=== PATIENT | male | born 1965 | race Caucasian/White ===

== ENCOUNTER 2018-02-09 19:25 | Inpatient (IN) ==
[2018-02-09] MEDS: EPTIFIBATIDE 75 MG/100 ML BOTTLE IV SCH (19:17)
[~2018-02-09 19:25] MED LIST: EPTIFIBATIDE 20,000 MCG/10 ML VIAL ONE; EPTIFIBATIDE 75 MG/100 ML BOTTLE IV ONE; HEPARIN/NACL 0.9% 2 UNITS/ML 1,500 ML IV ONE; HYDROmorphone 2 MG/1 ML VIAL ONE; MIDAZOLAM 2 MG/2 ML VIAL ONE
[2018-02-09] MEDS ORDERED: ENOXAPARIN 60 MG/0.6 ML SYRINGE ONE (19:56)
[2018-02-09] MEDS ORDERED: HEPARIN/NACL 0.9% 2 UNITS/ML 500 ML IV ONE (20:06)
[2018-02-09] MEDS ORDERED: LABETALOL 20 MG/4 ML SYRINGE IV ONE (20:22)
[2018-02-09] MEDS ORDERED: ceFAZolin 1,000 MG VIAL ONE (20:24)
[2018-02-09] MEDS ORDERED: TICAGRELOR 90 MG TABLET ONE (20:31)
[2018-02-09 20:38] LABS: Basophils # 0.1 10*3/uL (0.0-0.2); Basophils % 0.4 % (0.0-0.8); Eosinophils # 0.3 10*3/uL (0.0-0.87); Eosinophils % 1.4 % (0.00-10.9); Hematocrit 35.4 VOL% (42.0-52.0); Immature Granulocytes % 0.9 %; Immature Granulocytes Absolute 0.18 #; Lymphocytes # 1.5 10*3/uL (1.4-4.0); Lymphocytes % 7.8 % (21.2-54.2); Mean Corpuscular HGB Conc 33.9 GM/DL (32-36); Mean Corpuscular Hemoglobin 29 PG (27-34); Mean Corpuscular Volume 84.1 FL (87-102); Mean Platelet Volume 9.7 FL (9.6-12.0); Monocytes # 1.2 10*3/uL (0.11-0.8); Monocytes % 6.3 % (1.7-12.7); Neutrophils # 16.3 10*3/uL (1.4-7.4); Neutrophils % 83.2 % (38.7-73.9); Platelet Count 252 T/CUMM (130-400); Red Blood Count 4.21 MC/CUMM (3.8-5.5); Red Cell Distribution Width 12.2 % (9.3-17.3); White Blood Count 19.6 T/CUMM (4-12)
[2018-02-09] MEDS ORDERED: GLUCAGON 1 MG VIAL IM PRN (20:45)
[2018-02-09] MEDS ORDERED: ONDANSETRON 4 MG/2 ML VIAL ONE (20:50)
[2018-02-09] MEDS ORDERED: SODIUM CHLORIDE 0.9% 1,000 ML IV SCH (21:00)
[2018-02-09 21:05] LABS: CKMB % 10.7 %; Calcium 8.1 MG/DL (8.5-10.1); Potassium 4.3 MMOL/L (3.5-5.1)
[2018-02-09 21:08] LABS: Troponin I Only 6.56 NG/ML (0.00-0.045)
[2018-02-09] MEDS: DEXTROSE 50% 25 GM/50 ML VIAL IV PRN (21:20)
[2018-02-09] MEDS: CLORAZEPATE 7.5 MG TABLET PO PRN (22:45)
[2018-02-09] MEDS: LOSARTAN 50 MG TABLET PO SCH (22:45)
[2018-02-09] MEDS: TICAGRELOR 90 MG TABLET PO SCH (22:46)
[2018-02-09] MEDS: CARVEDILOL 6.25 MG TABLET PO SCH (22:46)
[2018-02-09] MEDS: NITROGLYCERIN SL 0.4 MG TABLET SL PRN ×2 (23:51→23:56)
[2018-02-09] MEDS ORDERED: NITROGLYCERIN SL 0.4 MG TABLET SL ONE (23:51)
[2018-02-10] MEDS: NITROGLYCERIN SL 0.4 MG TABLET SL PRN ×2 (00:03→02:07)
[2018-02-10] MEDS ORDERED: MORPHINE 4 MG/1 ML VIAL IV PRN (02:23)
[2018-02-10] MEDS: ZALEPLON 5 MG CAPSULE PO PRN (02:58)
[2018-02-10] MEDS: ONDANSETRON 4 MG/2 ML VIAL IV PRN (02:59)
[2018-02-10] MEDS: NITROGLYCERIN DRIP 50 MG/250 ML BOTTLE IV PRN (03:01)
[2018-02-10] MEDS: EPTIFIBATIDE 75 MG/100 ML BOTTLE IV SCH (03:11)
[2018-02-10] MEDS: MORPHINE 4 MG/1 ML VIAL IV PRN ×4 (03:55→13:31)
[2018-02-10] MEDS: SODIUM CHLORIDE 0.9% 1,000 ML IV SCH ×3 (06:10→21:21)
[2018-02-10 07:20] LABS: Basophils # 0.1 10*3/uL (0.0-0.2); Basophils % 0.3 % (0.0-0.8); Eosinophils % 0.1 % (0.00-10.9); Hematocrit 40.8 VOL% (42.0-52.0); Hemoglobin 14.2 GM/DL (14.0-18.0); Immature Granulocytes % 0.7 %; Immature Granulocytes Absolute 0.13 #; Lymphocytes # 1.3 10*3/uL (1.4-4.0); Lymphocytes % 6.9 % (21.2-54.2); Mean Corpuscular HGB Conc 34.8 GM/DL (32-36); Mean Corpuscular Hemoglobin 29 PG (27-34); Mean Corpuscular Volume 83.3 FL (87-102); Mean Platelet Volume 10.1 FL (9.6-12.0); Monocytes # 1.2 10*3/uL (0.11-0.8); Monocytes % 6.2 % (1.7-12.7); NRBC # 0.05 10*3/uL; Neutrophils # 16.1 10*3/uL (1.4-7.4); Neutrophils % 85.8 % (38.7-73.9); Platelet Count 279 T/CUMM (130-400); Red Cell Distribution Width 12.6 % (9.3-17.3); White Blood Count 18.8 T/CUMM (4-12)
[2018-02-10 08:02] LABS: Platelet Estimate Adequate; Polychromasia Slight
[2018-02-10] MEDS: CARVEDILOL 6.25 MG TABLET PO SCH ×2 (08:25→21:23)
[2018-02-10] MEDS: PANTOPRAZOLE 40 MG TABLET PO SCH (08:25)
[2018-02-10] MEDS: ASPIRIN CHEW 81 MG TABLET PO SCH (08:25)
[2018-02-10] MEDS: TICAGRELOR 90 MG TABLET PO SCH ×2 (08:25→21:23)
[2018-02-10] MEDS: ROSUVASTATIN 20 MG TABLET PO SCH (08:25)
[2018-02-10] MEDS: LOSARTAN 50 MG TABLET PO SCH (08:25)
[2018-02-10 09:28] LABS: Calcium 8.1 MG/DL (8.5-10.1); Potassium 4.6 MMOL/L (3.5-5.1)
[2018-02-10 09:49] LABS: CKMB % 13.8 %
[2018-02-10 09:54] LABS: Troponin I Only 47.4 NG/ML (0.00-0.045)
[2018-02-10] MEDS ORDERED: ALUM/MAG/SIMETH/LIDO VISC 1:1 30 ML BOTTLE PO ONE (13:38)
[2018-02-10 13:53] LABS: CKMB % 12.5 %
[2018-02-10 13:54] LABS: Troponin I Only 35.2 NG/ML (0.00-0.045)
[2018-02-11] MEDS: NITROGLYCERIN DRIP 50 MG/250 ML BOTTLE IV PRN (04:02)
[2018-02-11] MEDS: SODIUM CHLORIDE 0.9% 1,000 ML IV SCH ×5 (05:38→21:30)
[2018-02-11] MEDS: LOSARTAN 50 MG TABLET PO SCH (08:11)
[2018-02-11] MEDS: ASPIRIN CHEW 81 MG TABLET PO SCH (08:11)
[2018-02-11] MEDS: PANTOPRAZOLE 40 MG TABLET PO SCH (08:12)
[2018-02-11] MEDS: ROSUVASTATIN 20 MG TABLET PO SCH ×2 (08:12→21:15)
[2018-02-11] MEDS: CARVEDILOL 6.25 MG TABLET PO SCH ×2 (08:12→20:38)
[2018-02-11] MEDS: TICAGRELOR 90 MG TABLET PO SCH ×2 (08:12→20:38)
[2018-02-11] MEDS ORDERED: methylPREDNISolone SOD SUC 125 MG/2 ML VIAL IV ONE (09:17)
[2018-02-11] MEDS ORDERED: KETOROLAC 30 MG/1 ML VIAL IV ONE (09:17)
[2018-02-11 10:03] LABS: Calcium 7.7 MG/DL (8.5-10.1); Potassium 4.3 MMOL/L (3.5-5.1)
[2018-02-11 10:08] LABS: CKMB % 4.8 %
[2018-02-11 10:10] LABS: Risk Ratio 2.58
[2018-02-11] MEDS ORDERED: DEXTROSE 50% 25 GM/50 ML VIAL IV PRN (10:24)
[2018-02-11] MEDS ORDERED: GLUCAGON 1 MG VIAL IM PRN (10:24)
[2018-02-11] MEDS: GABAPENTIN 100 MG CAPSULE PO SCH ×3 (10:32→20:38)
[2018-02-11] MEDS: RANOLAZINE 500 MG TABLET PO SCH ×2 (10:33→20:38)
[2018-02-11] MEDS: HEPARIN DRIP 25,000 UNITS/500 ML PREMIX IV SCH (10:40)
[2018-02-11] MEDS: MORPHINE 4 MG/1 ML VIAL IV PRN (16:43)
[2018-02-12 04:27] LABS: Basophils % 0.1 % (0.0-0.8); Hematocrit 30.6 VOL% (42.0-52.0); Hemoglobin 10.6 GM/DL (14.0-18.0); Immature Granulocytes Absolute 0.22 #; Lymphocytes % 4.7 % (21.2-54.2); Mean Corpuscular HGB Conc 34.6 GM/DL (32-36); Mean Corpuscular Hemoglobin 29 PG (27-34); Mean Corpuscular Volume 83.2 FL (87-102); Mean Platelet Volume 10.6 FL (9.6-12.0); Monocytes # 0.8 10*3/uL (0.11-0.8); Monocytes % 3.9 % (1.7-12.7); Neutrophils # 19.4 10*3/uL (1.4-7.4); Neutrophils % 90.3 % (38.7-73.9); Platelet Count 228 T/CUMM (130-400); Red Blood Count 3.68 MC/CUMM (3.8-5.5); Red Cell Distribution Width 12.2 % (9.3-17.3); White Blood Count 21.5 T/CUMM (4-12)
[2018-02-12] MEDS: SODIUM CHLORIDE 0.9% 1,000 ML IV SCH ×3 (05:30→23:26)
[2018-02-12 05:35] LABS: Band Neutrophils 5 % (0-10); Lymphocytes 8 % (20-55); Platelet Estimate Normal; Segmented Neutrophils 82 % (50-85); Total Cells Counted 100
[2018-02-12 05:42] LABS: Calcium 7.8 MG/DL (8.5-10.1); Osmolality,Calculated 279.1 MOS/KG (273-304); Potassium 4.3 MMOL/L (3.5-5.1)
[2018-02-12] MEDS: HEPARIN DRIP 25,000 UNITS/500 ML PREMIX IV SCH ×2 (05:45→18:15)
[2018-02-12] MEDS: TICAGRELOR 90 MG TABLET PO SCH ×2 (09:41→21:09)
[2018-02-12] MEDS: CARVEDILOL 6.25 MG TABLET PO SCH (09:41)
[2018-02-12] MEDS: LOSARTAN 50 MG TABLET PO SCH (09:41)
[2018-02-12] MEDS: ASPIRIN CHEW 81 MG TABLET PO SCH (09:41)
[2018-02-12] MEDS: PANTOPRAZOLE 40 MG TABLET PO SCH (09:42)
[2018-02-12] MEDS: RANOLAZINE 500 MG TABLET PO SCH ×2 (09:42→21:10)
[2018-02-12] MEDS: GABAPENTIN 100 MG CAPSULE PO SCH ×3 (09:42→21:09)
[2018-02-12 13:55] LABS: HIV Antigen/Antibody Result Nonreactive (Nonreactive); Hepatitis B Surface Ag Quant 0.43 Index; Hepatitis B Surface Ag Result Negative (Negative); Hepatitis C Virus Ab Quant 0.17 Index; Hepatitis C Virus Ab Result Negative (Negative)
[2018-02-12] MEDS: ROSUVASTATIN 20 MG TABLET PO SCH (21:09)
[2018-02-12] MEDS: CARVEDILOL 12.5 MG TABLET PO SCH (21:10)
[2018-02-12] MEDS: ZALEPLON 5 MG CAPSULE PO PRN (21:17)
[2018-02-13] MEDS: CLORAZEPATE 7.5 MG TABLET PO PRN (00:58)
[2018-02-13] MEDS: MORPHINE 4 MG/1 ML VIAL IV PRN ×2 (01:48→05:17)
[2018-02-13] MEDS: ONDANSETRON 4 MG/2 ML VIAL IV PRN (01:53)
[2018-02-13] MEDS ORDERED: LORazepam 2 MG/1 ML VIAL IV ONE (02:30)
[2018-02-13] MEDS: NITROGLYCERIN SL 0.4 MG TABLET SL PRN (04:24)
[2018-02-13] MEDS ORDERED: FUROSEMIDE 40 MG/4 ML VIAL IV ONE ×2 (04:30→05:00)
[2018-02-13] MEDS: metOLazone 2.5 MG TABLET PO SCH ×2 (05:03→08:50)
[2018-02-13 06:24] LABS: Basophils # 0.1 10*3/uL (0.0-0.2); Basophils % 0.2 % (0.0-0.8); Eosinophils # 0.1 10*3/uL (0.0-0.87); Eosinophils % 0.3 % (0.00-10.9); Hematocrit 34.7 VOL% (42.0-52.0); Hemoglobin 11.8 GM/DL (14.0-18.0); Immature Granulocytes % 1.2 %; Immature Granulocytes Absolute 0.25 #; Lymphocytes # 0.9 10*3/uL (1.4-4.0); Lymphocytes % 4.2 % (21.2-54.2); Mean Corpuscular Hemoglobin 29 PG (27-34); Mean Corpuscular Volume 84.6 FL (87-102); Mean Platelet Volume 10.5 FL (9.6-12.0); Monocytes # 1.2 10*3/uL (0.11-0.8); Neutrophils # 18.1 10*3/uL (1.4-7.4); Neutrophils % 88.1 % (38.7-73.9); Platelet Count 283 T/CUMM (130-400); Red Cell Distribution Width 12.6 % (9.3-17.3); White Blood Count 20.6 T/CUMM (4-12)
[2018-02-13] MEDS: DEXTROSE 50% 25 GM/50 ML VIAL IV PRN ×2 (06:31→08:23)
[2018-02-13 06:39] LABS: Apearance,Urine Clear (Clear); Urine Color Straw (Yellow); Urine Specific Gravity 1.015 (1.001-1.035)
[2018-02-13 06:40] LABS: Bilirubin,Urine Negative (Negative); Blood, Urine Negative (Negative); Glucose,Urine (UA) Negative (Negative); Ketones,Urine Negative (Negative); Nitrite,Urine Negative (Negative); Protein,Urine Negative; Urine Urobilinogen 0.2 EU/DL (0.2-1.0)
[2018-02-13 06:52] LABS: Calcium 8.4 MG/DL (8.5-10.1); Osmolality,Calculated 276.5 MOS/KG (273-304); Potassium 3.8 MMOL/L (3.5-5.1)
[2018-02-13 06:56] LABS: CKMB % 3.7 %; Calcium 8.2 MG/DL (8.5-10.1); Osmolality,Calculated 275.5 MOS/KG (273-304); Potassium 3.7 MMOL/L (3.5-5.1)
[2018-02-13 06:57] LABS: Troponin I Only 8.63 NG/ML (0.00-0.045)
[2018-02-13 07:25] LABS: Band Neutrophils 1 % (0-10); Hypochromasia 1+; Lymphocytes 5 % (20-55); Platelet Estimate Adequate; Segmented Neutrophils 87 % (50-85); Total Cells Counted 100
[2018-02-13] MEDS: PANTOPRAZOLE 40 MG TABLET PO SCH (08:50)
[2018-02-13] MEDS: ESCITALOPRAM 10 MG TABLET PO SCH (08:50)
[2018-02-13] MEDS: CARVEDILOL 12.5 MG TABLET PO SCH ×2 (08:50→20:48)
[2018-02-13] MEDS: LOSARTAN 50 MG TABLET PO SCH (08:50)
[2018-02-13] MEDS: GABAPENTIN 100 MG CAPSULE PO SCH ×3 (08:50→20:48)
[2018-02-13] MEDS: ASPIRIN CHEW 81 MG TABLET PO SCH (08:50)
[2018-02-13] MEDS: TICAGRELOR 90 MG TABLET PO SCH ×2 (08:51→20:48)
[2018-02-13] MEDS: RANOLAZINE 500 MG TABLET PO SCH ×2 (09:34→20:48)
[2018-02-13] MEDS: ENOXAPARIN 120 MG/0.8 ML SYRINGE SUBCUT SCH ×2 (11:10→23:50)
[2018-02-13] MEDS: FUROSEMIDE 40 MG/4 ML VIAL IV SCH (15:36)
[2018-02-13] MEDS: ROSUVASTATIN 20 MG TABLET PO SCH (20:48)
[2018-02-13] MEDS: ZALEPLON 5 MG CAPSULE PO PRN (23:50)
[2018-02-14 05:51] LABS: Basophils # 0.1 10*3/uL (0.0-0.2); Basophils % 0.4 % (0.0-0.8); Eosinophils # 0.3 10*3/uL (0.0-0.87); Eosinophils % 2.4 % (0.00-10.9); Hematocrit 33.3 VOL% (42.0-52.0); Hemoglobin 11.2 GM/DL (14.0-18.0); Immature Granulocytes % 0.7 %; Lymphocytes # 1.7 10*3/uL (1.4-4.0); Lymphocytes % 12.5 % (21.2-54.2); Mean Corpuscular HGB Conc 33.6 GM/DL (32-36); Mean Corpuscular Hemoglobin 28 PG (27-34); Mean Corpuscular Volume 83.3 FL (87-102); Mean Platelet Volume 10.4 FL (9.6-12.0); Monocytes # 1.1 10*3/uL (0.11-0.8); Monocytes % 7.8 % (1.7-12.7); Neutrophils # 10.6 10*3/uL (1.4-7.4); Neutrophils % 76.2 % (38.7-73.9); Platelet Count 275 T/CUMM (130-400); Red Cell Distribution Width 12.6 % (9.3-17.3); White Blood Count 13.9 T/CUMM (4-12)
[2018-02-14 06:18] LABS: Calcium 7.9 MG/DL (8.5-10.1); Osmolality,Calculated 275.5 MOS/KG (273-304); Potassium 3.1 MMOL/L (3.5-5.1)
[2018-02-14] MEDS: FUROSEMIDE 40 MG/4 ML VIAL IV SCH (08:50)
[2018-02-14] MEDS: ASPIRIN CHEW 81 MG TABLET PO SCH (08:50)
[2018-02-14] MEDS: PANTOPRAZOLE 40 MG TABLET PO SCH (08:50)
[2018-02-14] MEDS: CARVEDILOL 12.5 MG TABLET PO SCH ×2 (08:50→21:44)
[2018-02-14] MEDS: LOSARTAN 50 MG TABLET PO SCH (08:50)
[2018-02-14] MEDS: TICAGRELOR 90 MG TABLET PO SCH ×2 (08:50→21:44)
[2018-02-14] MEDS: metOLazone 2.5 MG TABLET PO SCH (08:50)
[2018-02-14] MEDS: RANOLAZINE 500 MG TABLET PO SCH ×2 (08:50→21:43)
[2018-02-14] MEDS: GABAPENTIN 100 MG CAPSULE PO SCH ×3 (09:14→21:44)
[2018-02-14] MEDS: ENOXAPARIN 120 MG/0.8 ML SYRINGE SUBCUT SCH (11:10)
[2018-02-14] MEDS: POTASSIUM CHLORIDE 20 MEQ TABLET PO PRN ×3 (11:10→19:07)
[2018-02-14] MEDS: ESCITALOPRAM 10 MG TABLET PO SCH (11:10)
[2018-02-14] MEDS: ISOSORBIDE MONONITRATE 30 MG TABLET PO SCH (14:12)
[2018-02-14] MEDS ORDERED: POTASSIUM CHLORIDE 20 MEQ TABLET PO ONE (14:53)
[2018-02-14] MEDS ORDERED: diphenhydrAMINE CAP 25 MG CAPSULE PO PRN (15:35)
[2018-02-14] MEDS ORDERED: MAGNESIUM HYDROXIDE SUSP 30 ML UDCUP PO PRN (15:35)
[2018-02-14] MEDS: ROSUVASTATIN 20 MG TABLET PO SCH (21:43)
[2018-02-15 04:42] LABS: Basophils # 0.1 10*3/uL (0.0-0.2); Basophils % 0.4 % (0.0-0.8); Eosinophils # 0.5 10*3/uL (0.0-0.87); Eosinophils % 3.4 % (0.00-10.9); Hematocrit 33.2 VOL% (42.0-52.0); Hemoglobin 11.3 GM/DL (14.0-18.0); Immature Granulocytes % 1.8 %; Immature Granulocytes Absolute 0.25 #; Lymphocytes # 1.9 10*3/uL (1.4-4.0); Lymphocytes % 14.3 % (21.2-54.2); Mean Corpuscular Hemoglobin 28 PG (27-34); Mean Platelet Volume 10.2 FL (9.6-12.0); Monocytes # 0.9 10*3/uL (0.11-0.8); Monocytes % 6.6 % (1.7-12.7); Neutrophils % 73.5 % (38.7-73.9); Platelet Count 275 T/CUMM (130-400); Red Cell Distribution Width 12.4 % (9.3-17.3); White Blood Count 13.5 T/CUMM (4-12)
[2018-02-15] MEDS: POTASSIUM CHLORIDE 20 MEQ TABLET PO PRN ×4 (05:00→08:54)
[2018-02-15 05:07] LABS: Calcium 7.9 MG/DL (8.5-10.1); Osmolality,Calculated 271.5 MOS/KG (273-304); Potassium 3.3 MMOL/L (3.5-5.1)
[2018-02-15] MEDS: ISOSORBIDE MONONITRATE 30 MG TABLET PO SCH (08:53)
[2018-02-15] MEDS: LOSARTAN 50 MG TABLET PO SCH (08:54)
[2018-02-15] MEDS: CARVEDILOL 12.5 MG TABLET PO SCH (08:54)
[2018-02-15] MEDS: TICAGRELOR 90 MG TABLET PO SCH (08:54)
[2018-02-15] MEDS: ESCITALOPRAM 10 MG TABLET PO SCH (08:54)
[2018-02-15] MEDS: GABAPENTIN 100 MG CAPSULE PO SCH ×2 (08:54→15:44)
[2018-02-15] MEDS: RANOLAZINE 500 MG TABLET PO SCH (08:54)
[2018-02-15] MEDS: ASPIRIN CHEW 81 MG TABLET PO SCH (08:54)
[2018-02-15] MEDS: PANTOPRAZOLE 40 MG TABLET PO SCH (08:54)
[2018-02-15] MEDS ORDERED: FUROSEMIDE 40 MG/4 ML VIAL IV SCH (09:00)
[2018-02-15 11:54] VITALS: BP 131/74
[2018-02-16] MEDS ORDERED: FUROSEMIDE 40 MG TABLET PO SCH (09:00)
== END 2018-02-15 16:59 | disposition home or self-care (01) | DRG 246 ==
LOC: N.CL 19:25 → N.SDSINP 19:28 → N.CC 19:41 → N.TELEN 02-14 14:23
PROVIDERS: ADMIT Internal Medicine Cardiovascular Disease; ATTEND Internal Medicine Cardiovascular Disease
PROC: CLCCHCL (ICD-10-PCS; 2018-02-09 19:15)

== ENCOUNTER 2018-08-24 13:46 | Inpatient (IN) ==
[2018-08-24] MEDS ORDERED: NITROGLYCERIN SL 0.4 MG TABLET SL STA (14:06)
[2018-08-24] MEDS ORDERED: ENOXAPARIN 100 MG/ML SYRINGE SUBCUT STA (14:20)
[2018-08-24] MEDS ORDERED: ENOXAPARIN 120 MG/0.8 ML SYRINGE SUBCUT ONE (14:29)
[2018-08-24 14:30] LABS: Basophils % 0.3 % (0.0-0.8); Hematocrit 41.6 VOL% (42.0-52.0); Hemoglobin 13.4 GM/DL (14.0-18.0); Immature Granulocytes % 0.6 %; Immature Granulocytes Absolute 0.06 #; Lymphocytes # 1.7 10*3/uL (1.4-4.0); Mean Corpuscular HGB Conc 32.2 GM/DL (32-36); Mean Corpuscular Hemoglobin 27 PG (27-34); Mean Corpuscular Volume 82.9 FL (87-102); Monocytes # 0.7 10*3/uL (0.11-0.8); Monocytes % 6.4 % (1.7-12.7); Neutrophils # 7.6 10*3/uL (1.4-7.4); Neutrophils % 75.7 % (38.7-73.9); Platelet Count 295 T/CUMM (130-400); Red Blood Count 5.02 MC/CUMM (3.8-5.5); Red Cell Distribution Width 13.4 % (9.3-17.3); White Blood Count 10.1 T/CUMM (4-12)
[2018-08-24 15:03] LABS: Albumin 3.7 G/DL (3.4-5.0); Bilirubin,Total 0.5 MG/DL (0.2-1.0); Calcium 9.2 MG/DL (8.5-10.1); Osmolality,Calculated 284.3 MOS/KG (273-304); Potassium 4.2 MMOL/L (3.5-5.1); Total Protein 7.4 G/DL (6.4-8.3)
[2018-08-24] MEDS ORDERED: BISACODYL 5 MG TABLET PO PRN (15:57)
[2018-08-24] MEDS ORDERED: guaiFENesin/DM ER 600-30 MG TABLET PO PRN (15:57)
[2018-08-24] MEDS ORDERED: diphenhydrAMINE CAP 25 MG CAPSULE PO PRN (15:57)
[2018-08-24] MEDS ORDERED: MAGNESIUM SULF RIDER 4 GM in PREMIX 1 EACH IV PRN (15:57)
[2018-08-24] MEDS ORDERED: MAGNESIUM SULF RIDER 2 GM in PREMIX 1 EACH IV PRN (15:57)
[2018-08-24] MEDS ORDERED: ONDANSETRON 4 MG/2 ML VIAL IV PRN (15:57)
[2018-08-24] MEDS ORDERED: ACETAMINOPHEN 325 MG TABLET PO PRN (15:57)
[2018-08-24] MEDS ORDERED: DOCUSATE SODIUM 100 MG CAPSULE PO PRN (15:57)
[2018-08-24] MEDS ORDERED: POTASSIUM CHLORIDE 20 MEQ TABLET PO PRN (15:57)
[2018-08-24] MEDS ORDERED: NITROGLYCERIN SL 0.4 MG TABLET SL PRN (16:48)
[2018-08-24] MEDS ORDERED: GLUCAGON 1 MG VIAL IM PRN (16:52)
[2018-08-24] MEDS ORDERED: DEXTROSE 50% 25 GM/50 ML VIAL IV PRN (16:52)
[2018-08-24] MEDS: ENOXAPARIN 40 MG/0.4 ML SYRINGE SUBCUT SCH (17:15)
[2018-08-24] MEDS: PANTOPRAZOLE 40 MG TABLET PO SCH (17:15)
[2018-08-24 19:18] LABS: Troponin I 0.094 NG/ML (0.00-0.045)
[2018-08-24] MEDS: TICAGRELOR 90 MG TABLET PO SCH (20:46)
[2018-08-24] MEDS: GABAPENTIN 100 MG CAPSULE PO SCH (20:46)
[2018-08-24] MEDS: ROSUVASTATIN 20 MG TABLET PO SCH (20:46)
[2018-08-24] MEDS: RANOLAZINE 500 MG TABLET PO SCH (20:46)
[2018-08-24] MEDS: CARVEDILOL 12.5 MG TABLET PO SCH (20:46)
[2018-08-24] MEDS: LEVOTHYROXINE 150 MCG TABLET PO SCH (20:46)
[2018-08-24] MEDS: DORZOLAMIDE/TIMOLOL OPH SOLN 10 ML BOTTLE LEFT EYE SCH (20:51)
[2018-08-24] MEDS: INSULIN LISPRO 100 UNIT/ML SUBCUT SCH (20:53)
[2018-08-24] MEDS: BIMATOPROST 0.01% OPH SOLN 2.5 ML BOTTLE LEFT EYE SCH (20:53)
[2018-08-24] MEDS ORDERED: Cinnamon Bark [Cinnamon] 1,000 MG PO SCH (21:00)
[2018-08-24 22:33] LABS: Troponin I 0.083 NG/ML (0.00-0.045)
[2018-08-25 03:44] LABS: Basophils % 0.2 % (0.0-0.8); Eosinophils % 0.2 % (0.00-10.9); Hematocrit 38.5 VOL% (42.0-52.0); Hemoglobin 12.2 GM/DL (14.0-18.0); Immature Granulocytes % 0.5 %; Immature Granulocytes Absolute 0.04 #; Lymphocytes % 24.2 % (21.2-54.2); Mean Corpuscular HGB Conc 31.7 GM/DL (32-36); Mean Corpuscular Hemoglobin 26 PG (27-34); Mean Corpuscular Volume 83.3 FL (87-102); Mean Platelet Volume 9.9 FL (9.6-12.0); Monocytes # 0.8 10*3/uL (0.11-0.8); Monocytes % 9.7 % (1.7-12.7); Neutrophils # 5.3 10*3/uL (1.4-7.4); Neutrophils % 65.2 % (38.7-73.9); Platelet Count 247 T/CUMM (130-400); Red Blood Count 4.62 MC/CUMM (3.8-5.5); Red Cell Distribution Width 13.3 % (9.3-17.3); White Blood Count 8.2 T/CUMM (4-12)
[2018-08-25 03:54] LABS: Blood Urea Nitrogen 15 MG/DL (7-18); Calcium 8.7 MG/DL (8.5-10.1); Cholesterol 117 MG/DL (50-200); Glucose 169 MG/DL (74-106); HDL Cholesterol 29 MG/DL (40-60); Osmolality,Calculated 287.1 MOS/KG (273-304); Risk Ratio 4.03; Sodium 142 MMOL/L (136-145); Triglycerides 301 MG/DL (2-150); VLDL CHOLESTEROL 60.2 MG/DL
[2018-08-25 04:00] LABS: Troponin I 0.077 NG/ML (0.00-0.045)
[2018-08-25] MEDS ORDERED: MAGNESIUM SULF RIDER 2 GM in PREMIX 1 EACH IV PRN (06:50)
[2018-08-25] MEDS ORDERED: POTASSIUM CHLORIDE RIDER 10 MEQ in PREMIX 1 EACH IV PRN (06:50)
[2018-08-25] MEDS ORDERED: diphenhydrAMINE CAP 50 MG CAPSULE PO ONE (07:11)
[2018-08-25] MEDS ORDERED: DIAZEPAM 5 MG TABLET PO ONE (07:12)
[2018-08-25] MEDS: SODIUM CHLORIDE 0.9% 1,000 ML IV SCH ×2 (07:35→16:09)
[2018-08-25] MEDS: INSULIN LISPRO 100 UNIT/ML SUBCUT SCH ×4 (08:55→20:47)
[2018-08-25] MEDS: PANTOPRAZOLE 40 MG TABLET PO SCH (08:56)
[2018-08-25] MEDS: ASPIRIN CHEW 81 MG TABLET PO SCH (08:57)
[2018-08-25] MEDS: CARVEDILOL 12.5 MG TABLET PO SCH ×2 (08:57→20:43)
[2018-08-25] MEDS: TICAGRELOR 90 MG TABLET PO SCH ×2 (08:57→20:43)
[2018-08-25] MEDS: ENOXAPARIN 40 MG/0.4 ML SYRINGE SUBCUT SCH ×2 (08:57→16:01)
[2018-08-25] MEDS: DORZOLAMIDE/TIMOLOL OPH SOLN 10 ML BOTTLE LEFT EYE SCH ×2 (08:59→20:47)
[2018-08-25] MEDS: ISOSORBIDE MONONITRATE 30 MG TABLET PO SCH (09:02)
[2018-08-25] MEDS: RANOLAZINE 500 MG TABLET PO SCH ×2 (09:02→20:43)
[2018-08-25] MEDS: GABAPENTIN 100 MG CAPSULE PO SCH ×3 (09:02→20:43)
[2018-08-25] MEDS: OMEGA 3 ACID ETHYL ESTERS 1 GM CAPSULE PO SCH (16:28)
[2018-08-25] MEDS: CHOLECALCIFEROL 1,000 UNIT TABLET PO SCH (16:29)
[2018-08-25] MEDS: CETIRIZINE 10 MG TABLET PO SCH (16:29)
[2018-08-25] MEDS: FUROSEMIDE 40 MG TABLET PO SCH (17:04)
[2018-08-25] MEDS: ESCITALOPRAM 10 MG TABLET PO SCH (17:05)
[2018-08-25] MEDS: LEVOTHYROXINE 150 MCG TABLET PO SCH (20:43)
[2018-08-25] MEDS: ROSUVASTATIN 20 MG TABLET PO SCH (20:43)
[2018-08-25] MEDS: BIMATOPROST 0.01% OPH SOLN 2.5 ML BOTTLE LEFT EYE SCH (20:47)
[2018-08-26] MEDS: SODIUM CHLORIDE 0.9% 1,000 ML IV SCH ×2 (02:50→08:52)
[2018-08-26 06:33] LABS: Basophils % 0.1 % (0.0-0.8); Eosinophils % 0.2 % (0.00-10.9); Hematocrit 39.6 VOL% (42.0-52.0); Hemoglobin 12.3 GM/DL (14.0-18.0); Immature Granulocytes % 0.4 %; Immature Granulocytes Absolute 0.04 #; Lymphocytes # 1.5 10*3/uL (1.4-4.0); Lymphocytes % 16.4 % (21.2-54.2); Mean Corpuscular HGB Conc 31.1 GM/DL (32-36); Mean Corpuscular Hemoglobin 26 PG (27-34); Mean Corpuscular Volume 84.1 FL (87-102); Mean Platelet Volume 9.9 FL (9.6-12.0); Monocytes # 0.8 10*3/uL (0.11-0.8); Monocytes % 9.3 % (1.7-12.7); Neutrophils # 6.6 10*3/uL (1.4-7.4); Neutrophils % 73.6 % (38.7-73.9); Platelet Count 237 T/CUMM (130-400); Red Blood Count 4.71 MC/CUMM (3.8-5.5); Red Cell Distribution Width 13.4 % (9.3-17.3)
[2018-08-26 07:02] LABS: Calcium 8.4 MG/DL (8.5-10.1); Osmolality,Calculated 285.1 MOS/KG (273-304); Potassium 3.8 MMOL/L (3.5-5.1)
[2018-08-26] MEDS: INSULIN LISPRO 100 UNIT/ML SUBCUT SCH ×4 (08:06→21:40)
[2018-08-26] MEDS ORDERED: diphenhydrAMINE CAP 50 MG CAPSULE PO ONE (08:54)
[2018-08-26] MEDS ORDERED: DIAZEPAM 5 MG TABLET PO ONE (08:54)
[2018-08-26] MEDS: PANTOPRAZOLE 40 MG TABLET PO SCH (11:41)
[2018-08-26] MEDS: TICAGRELOR 90 MG TABLET PO SCH (11:41)
[2018-08-26] MEDS: CHOLECALCIFEROL 1,000 UNIT TABLET PO SCH (11:42)
[2018-08-26] MEDS: CETIRIZINE 10 MG TABLET PO SCH (11:42)
[2018-08-26] MEDS ORDERED: LIDOCAINE 1% 20 ML VIAL ONE ×2 (11:42→11:43)
[2018-08-26] MEDS: RANOLAZINE 500 MG TABLET PO SCH ×2 (11:42→21:39)
[2018-08-26] MEDS: ESCITALOPRAM 10 MG TABLET PO SCH (11:42)
[2018-08-26] MEDS ORDERED: HEPARIN/NACL 0.9% 2 UNITS/ML 1,000 ML IV ONE ×2 (11:42→11:43)
[2018-08-26] MEDS: GABAPENTIN 100 MG CAPSULE PO SCH ×3 (11:42→21:39)
[2018-08-26] MEDS: OMEGA 3 ACID ETHYL ESTERS 1 GM CAPSULE PO SCH (11:42)
[2018-08-26] MEDS: ASPIRIN CHEW 81 MG TABLET PO SCH (11:43)
[2018-08-26] MEDS: CARVEDILOL 12.5 MG TABLET PO SCH ×2 (11:43→21:39)
[2018-08-26] MEDS: ISOSORBIDE MONONITRATE 30 MG TABLET PO SCH (11:43)
[2018-08-26] MEDS: FUROSEMIDE 40 MG TABLET PO SCH (11:46)
[2018-08-26] MEDS: DORZOLAMIDE/TIMOLOL OPH SOLN 10 ML BOTTLE LEFT EYE SCH ×2 (11:46→21:40)
[2018-08-26] MEDS ORDERED: MIDAZOLAM 2 MG/2 ML VIAL ONE (12:06)
[2018-08-26] MEDS ORDERED: fentaNYL 100 MCG/2 ML VIAL ONE (12:06)
[2018-08-26] MEDS ORDERED: DEXTROSE 50% 25 GM/50 ML VIAL IV PRN (12:52)
[2018-08-26] MEDS ORDERED: GLUCAGON 1 MG VIAL IM PRN (12:52)
[2018-08-26] MEDS: ENOXAPARIN 40 MG/0.4 ML SYRINGE SUBCUT SCH (18:13)
[2018-08-26] MEDS: ZALEPLON 5 MG CAPSULE PO PRN (21:39)
[2018-08-26] MEDS: LEVOTHYROXINE 150 MCG TABLET PO SCH (21:39)
[2018-08-26] MEDS: ROSUVASTATIN 20 MG TABLET PO SCH (21:39)
[2018-08-26] MEDS: BIMATOPROST 0.01% OPH SOLN 2.5 ML BOTTLE LEFT EYE SCH (21:40)
[2018-08-27 05:38] LABS: Basophils % 0.2 % (0.0-0.8); Eosinophils % 0.1 % (0.00-10.9); Hematocrit 37.7 VOL% (42.0-52.0); Hemoglobin 12.1 GM/DL (14.0-18.0); Immature Granulocytes % 0.5 %; Immature Granulocytes Absolute 0.05 #; Lymphocytes # 1.4 10*3/uL (1.4-4.0); Lymphocytes % 14.6 % (21.2-54.2); Mean Corpuscular HGB Conc 32.1 GM/DL (32-36); Mean Corpuscular Hemoglobin 27 PG (27-34); Mean Platelet Volume 9.8 FL (9.6-12.0); Monocytes # 0.7 10*3/uL (0.11-0.8); Monocytes % 7.3 % (1.7-12.7); Neutrophils # 7.5 10*3/uL (1.4-7.4); Neutrophils % 77.3 % (38.7-73.9); Platelet Count 232 T/CUMM (130-400); Red Blood Count 4.54 MC/CUMM (3.8-5.5); Red Cell Distribution Width 13.3 % (9.3-17.3); White Blood Count 9.8 T/CUMM (4-12)
[2018-08-27 05:54] LABS: Calcium 8.3 MG/DL (8.5-10.1); Osmolality,Calculated 283.4 MOS/KG (273-304); Potassium 3.8 MMOL/L (3.5-5.1)
[2018-08-27 05:55] LABS: Calcium 8.5 MG/DL (8.5-10.1); Osmolality,Calculated 281.5 MOS/KG (273-304); Potassium 3.9 MMOL/L (3.5-5.1)
[2018-08-27] MEDS: INSULIN LISPRO 100 UNIT/ML SUBCUT SCH ×4 (07:35→20:33)
[2018-08-27] MEDS: CARVEDILOL 12.5 MG TABLET PO SCH ×2 (08:26→20:32)
[2018-08-27] MEDS: ESCITALOPRAM 10 MG TABLET PO SCH (08:26)
[2018-08-27] MEDS: PANTOPRAZOLE 40 MG TABLET PO SCH (08:26)
[2018-08-27] MEDS: ASPIRIN CHEW 81 MG TABLET PO SCH (08:26)
[2018-08-27] MEDS: RANOLAZINE 500 MG TABLET PO SCH ×2 (08:26→20:32)
[2018-08-27] MEDS: CHOLECALCIFEROL 1,000 UNIT TABLET PO SCH (08:26)
[2018-08-27] MEDS: ISOSORBIDE MONONITRATE 30 MG TABLET PO SCH (08:26)
[2018-08-27] MEDS: GABAPENTIN 100 MG CAPSULE PO SCH ×3 (08:26→20:32)
[2018-08-27] MEDS: OMEGA 3 ACID ETHYL ESTERS 1 GM CAPSULE PO SCH (08:26)
[2018-08-27] MEDS: FUROSEMIDE 40 MG TABLET PO SCH (08:27)
[2018-08-27] MEDS: CETIRIZINE 10 MG TABLET PO SCH (08:27)
[2018-08-27] MEDS: DORZOLAMIDE/TIMOLOL OPH SOLN 10 ML BOTTLE LEFT EYE SCH ×2 (08:30→20:32)
[2018-08-27] MEDS: ENOXAPARIN 40 MG/0.4 ML SYRINGE SUBCUT SCH (16:43)
[2018-08-27] MEDS: BIMATOPROST 0.01% OPH SOLN 2.5 ML BOTTLE LEFT EYE SCH (20:32)
[2018-08-27] MEDS: ROSUVASTATIN 20 MG TABLET PO SCH (20:32)
[2018-08-27] MEDS: LEVOTHYROXINE 150 MCG TABLET PO SCH (20:32)
[2018-08-27] MEDS: ZALEPLON 5 MG CAPSULE PO PRN (20:37)
[2018-08-28] MEDS: INSULIN LISPRO 100 UNIT/ML SUBCUT SCH ×4 (08:32→21:00)
[2018-08-28] MEDS: ASPIRIN CHEW 81 MG TABLET PO SCH (08:42)
[2018-08-28] MEDS: ISOSORBIDE MONONITRATE 30 MG TABLET PO SCH (08:42)
[2018-08-28] MEDS: CETIRIZINE 10 MG TABLET PO SCH (08:42)
[2018-08-28] MEDS: GABAPENTIN 100 MG CAPSULE PO SCH ×3 (08:42→21:00)
[2018-08-28] MEDS: ESCITALOPRAM 10 MG TABLET PO SCH (08:42)
[2018-08-28] MEDS: PANTOPRAZOLE 40 MG TABLET PO SCH (08:42)
[2018-08-28] MEDS: FUROSEMIDE 40 MG TABLET PO SCH (08:43)
[2018-08-28] MEDS: CARVEDILOL 12.5 MG TABLET PO SCH ×2 (08:43→21:00)
[2018-08-28] MEDS: RANOLAZINE 500 MG TABLET PO SCH ×2 (08:43→21:00)
[2018-08-28] MEDS: OMEGA 3 ACID ETHYL ESTERS 1 GM CAPSULE PO SCH (08:43)
[2018-08-28] MEDS: DORZOLAMIDE/TIMOLOL OPH SOLN 10 ML BOTTLE LEFT EYE SCH ×2 (08:45→21:00)
[2018-08-28] MEDS: CHOLECALCIFEROL 1,000 UNIT TABLET PO SCH (11:53)
[2018-08-28] MEDS: SODIUM CHLORIDE 0.9% 1,000 ML IV SCH (14:48)
[2018-08-28] MEDS: ENOXAPARIN 40 MG/0.4 ML SYRINGE SUBCUT SCH (19:09)
[2018-08-28] MEDS: NITROGLYCERIN 2% OINT 1 INCH/GM PACK TOP SCH ×2 (19:10→23:58)
[2018-08-28] MEDS: ROSUVASTATIN 20 MG TABLET PO SCH (20:59)
[2018-08-28] MEDS: LEVOTHYROXINE 150 MCG TABLET PO SCH (20:59)
[2018-08-28] MEDS: CHLORHEXIDINE 4% SOLN 118 ML BOTTLE TOP SCH (21:00)
[2018-08-28] MEDS: BIMATOPROST 0.01% OPH SOLN 2.5 ML BOTTLE LEFT EYE SCH (21:01)
[2018-08-28] MEDS: CHLORHEXIDINE 0.12% ORAL RINSE 60 ML BOTTLE SWISH/SPIT SCH (21:01)
[2018-08-28] MEDS ORDERED: SODIUM CHLORIDE 0.9% 1,000 ML IV PRN ×3 (22:39→23:07)
[2018-08-29] MEDS ORDERED: INSULIN LISPRO 100 UNIT/ML SUBCUT ONE ×2 (03:59→05:00)
[2018-08-29] MEDS ORDERED: VANCOMYCIN 1,000 MG VIAL ONE (04:57)
[2018-08-29] MEDS ORDERED: PAPAVERINE 60 MG/2 ML VIAL ONE (04:57)
[2018-08-29] MEDS ORDERED: TISSUE ADHESIVE 1 EACH APPLICATOR TOP ONE (04:57)
[2018-08-29] MEDS ORDERED: CEFUROXIME INJ 1,500 MG in SYRINGE 1 EACH IV ONE (05:00)
[2018-08-29] MEDS ORDERED: SUFentanil 250 MCG/5 ML AMP ONE (05:44)
[2018-08-29] MEDS ORDERED: MIDAZOLAM 10 MG/2 ML VIAL ONE ×2 (05:45→09:52)
[2018-08-29] MEDS: NITROGLYCERIN 2% OINT 1 INCH/GM PACK TOP SCH (05:45)
[2018-08-29 05:47] LABS: Basophils % 0.3 % (0.0-0.8); Eosinophils % 0.1 % (0.00-10.9); Hematocrit 41.7 VOL% (42.0-52.0); Hemoglobin 13.2 GM/DL (14.0-18.0); Immature Granulocytes % 0.5 %; Immature Granulocytes Absolute 0.06 #; Lymphocytes # 1.7 10*3/uL (1.4-4.0); Lymphocytes % 13.7 % (21.2-54.2); Mean Corpuscular HGB Conc 31.7 GM/DL (32-36); Mean Corpuscular Hemoglobin 27 PG (27-34); Mean Corpuscular Volume 83.9 FL (87-102); Mean Platelet Volume 10.4 FL (9.6-12.0); Monocytes # 0.7 10*3/uL (0.11-0.8); Monocytes % 5.5 % (1.7-12.7); Neutrophils # 9.7 10*3/uL (1.4-7.4); Neutrophils % 79.9 % (38.7-73.9); Platelet Count 269 T/CUMM (130-400); Red Blood Count 4.97 MC/CUMM (3.8-5.5); Red Cell Distribution Width 13.4 % (9.3-17.3); White Blood Count 12.1 T/CUMM (4-12)
[2018-08-29 06:05] LABS: Calcium 8.8 MG/DL (8.5-10.1); Osmolality,Calculated 288.2 MOS/KG (273-304); Potassium 4.3 MMOL/L (3.5-5.1)
[2018-08-29] MEDS ORDERED: DIAZEPAM 5 MG TABLET PO ONE (06:30)
[2018-08-29] MEDS ORDERED: FAMOTIDINE 20 MG TABLET PO ONE (06:30)
[2018-08-29] MEDS: CARVEDILOL 12.5 MG TABLET PO SCH (06:34)
[2018-08-29 07:47] LABS: ABG Base Excess -2.2 MMOL/L (-2.5-2.5); ABG HCO3 22.6 MMOL/L (20-26); ABG Oxygen Saturation 99.8 % (95-100); ABG PCO2 38.8 MM HG (35-48); ABG PH 7.376 (7.35-7.45); ABG TCO2 20.3 MMOL/L (23-27); Glucose Heart Surgery 380 MG/DL (74-106); Hematocrit Heart Surgery 35.4 PERCENT (42-52); Hemoglobin Heart Surgery 11.5 G/DL (14.0-18.0); Ionized Calcium Arterial 1.14 MMOL/L (1.21-1.46); PCO2 Patient Temp Arterial 38.8 MMHG; PH Patient Temp Arterial 7.376; Patient Temperature 37 CELCIUS; Sodium Heart/CVR 135 MMOL/L (135-145)
[2018-08-29 07:54] LABS: Apearance,Urine CLEAR (Clear); Bilirubin,Urine Negative (Negative); Blood, Urine Negative (Negative); Glucose,Urine (UA) >=500 mg/dL (Negative); Hyaline Casts,Urine 1 /LPF (0-3); Ketones,Urine 5 mg/dL (Negative); Mucus,Urine Occasional /LPF (Occasional); Nitrite,Urine Negative (Negative); Protein,Urine Negative; RBC,Urine 1 /HPF (0-4); Urine Color Straw (Yellow); Urine Urobilinogen < 2.0 EU/DL (0.2-1.0); WBC,Urine <1 /HPF (0-6)
[2018-08-29 09:14] LABS: Hematocrit Heart Surgery 25.3 PERCENT (42-52); Hemoglobin Heart Surgery 8.1 G/DL (14.0-18.0); PCO2 Patient Temp Venous 43.1 MM HG; PH Patient Temp Venous 7.371; PO2 Patient Temp Venous 34.1 MM HG; VBG Base Excess -0.2 MEQ/L (0-4); VBG HCO3 23.9 MEQ/L (24-28); VBG Oxygen Saturation 69.1 %; VBG PCO2 47.5 MMHG (41-51); VBG PH 7.343; VBG PO2 39.2 MMHG (17-40)
[2018-08-29 09:22] LABS: Potassium Heart/CVR 6.2 MMOL/L (3.5-5.1)
[2018-08-29 09:45] LABS: Hemoglobin Heart Surgery 9.1 G/DL (14.0-18.0); PCO2 Patient Temp Venous 41.7 MM HG; PH Patient Temp Venous 7.379; PO2 Patient Temp Venous 38.7 MM HG; VBG HCO3 24.1 MEQ/L (24-28); VBG Oxygen Saturation 67.8 %; VBG PCO2 41.7 MMHG (41-51); VBG PH 7.379; VBG PO2 38.7 MMHG (17-40)
[2018-08-29 09:50] LABS: Potassium Heart/CVR 6.3 MMOL/L (3.5-5.1)
[2018-08-29] MEDS ORDERED: SODIUM BICARBONATE 50 MEQ/50 ML SYRINGE IV ONE ×2 (09:51→10:23)
[2018-08-29] MEDS ORDERED: EPINEPHrine 1 MG/10 ML SYRINGE ONE (09:51)
[2018-08-29] MEDS ORDERED: ALBUMIN 5% 12.5 GM/250 ML VIAL IV ONE (09:51)
[2018-08-29] MEDS ORDERED: CALCIUM CHLORIDE 1,000 MG/10 ML SYRINGE IV ONE (09:51)
[2018-08-29] MEDS ORDERED: LIDOCAINE 100 MG/5 ML SYRINGE ONE (09:52)
[2018-08-29] MEDS ORDERED: THROMBIN TOPICAL (RECOMBINANT) 5,000 UNIT VIAL TOP ONE (09:57)
[2018-08-29 10:22] LABS: ABG Base Excess -3.9 MMOL/L (-2.5-2.5); ABG HCO3 21.2 MMOL/L (20-26); ABG Oxygen Saturation 99.8 % (95-100); ABG PCO2 37.1 MM HG (35-48); ABG PH 7.362 (7.35-7.45); ABG TCO2 19.2 MMOL/L (23-27); Glucose Heart Surgery 374 MG/DL (74-106); Hematocrit Heart Surgery 30.3 PERCENT (42-52); Hemoglobin Heart Surgery 9.8 G/DL (14.0-18.0); PCO2 Patient Temp Arterial 37.1 MMHG; PH Patient Temp Arterial 7.362; Patient Temperature 37 CELCIUS; Sodium Heart/CVR 132 MMOL/L (135-145)
[2018-08-29] MEDS ORDERED: methylPREDNISolone SOD SUC 1,000 MG/8 ML VIAL ONE (10:23)
[2018-08-29] MEDS ORDERED: MAGNESIUM SULFATE 10 GM/20 ML VIAL IV ONE (10:23)
[2018-08-29] MEDS ORDERED: PROTAMINE SULFATE 250 MG/25 ML VIAL IV ONE (10:23)
[2018-08-29] MEDS ORDERED: DEXTROSE 5% KCL 20 MEQ 20 MEQ/1,000 ML BAG IV ONE (10:23)
[2018-08-29] MEDS ORDERED: HEPARIN 10,000 UNIT/10 ML VIAL ONE (10:23)
[2018-08-29] MEDS ORDERED: ALBUMIN 25% 25 GM/100 ML VIAL IV ONE (10:23)
[2018-08-29] MEDS ORDERED: MANNITOL 12.5 GM/50 ML VIAL IV ONE (10:24)
[2018-08-29] MEDS ORDERED: PROTAMINE SULFATE 50 MG/5 ML VIAL IV ONE (10:24)
[2018-08-29] MEDS ORDERED: FUROSEMIDE 20 MG/2 ML VIAL ONE (10:24)
[2018-08-29] MEDS ORDERED: PHENYLEPHRINE 1 MG/10 ML SYRINGE IV ONE (10:24)
[2018-08-29] MEDS ORDERED: POTASSIUM CHLORIDE RIDER 20 MEQ in PREMIX 1 EACH IV PRN (11:03)
[2018-08-29] MEDS ORDERED: MIDAZOLAM 2 MG/2 ML VIAL IV PRN (11:03)
[2018-08-29] MEDS ORDERED: MAGNESIUM SULF RIDER 2 GM in PREMIX 1 EACH IV PRN (11:03)
[2018-08-29] MEDS ORDERED: ACETAMINOPHEN 650 MG SUPP RECTAL PRN (11:03)
[2018-08-29] MEDS ORDERED: DEXTROSE 50% 25 GM/50 ML VIAL IV PRN ×2 (11:03)
[2018-08-29] MEDS ORDERED: POTASSIUM CHLORIDE RIDER 10 MEQ in PREMIX 1 EACH IV PRN (11:03)
[2018-08-29] MEDS ORDERED: ALBUMIN 5% 12.5 GM in PREMIX 1 EACH IV PRN (11:03)
[2018-08-29] MEDS ORDERED: SODIUM CHLORIDE 0.9% 250 ML IV PRN (11:03)
[2018-08-29] MEDS ORDERED: CHLORHEXIDINE 4% SOLN 118 ML BOTTLE TOP PRN (11:03)
[2018-08-29] MEDS ORDERED: CALCIUM CHLORIDE 1,000 MG/10 ML SYRINGE IV PRN (11:03)
[2018-08-29] MEDS ORDERED: ONDANSETRON 4 MG/2 ML VIAL IV PRN (11:03)
[2018-08-29] MEDS ORDERED: MAGNESIUM SULF RIDER 4 GM in PREMIX 1 EACH IV PRN (11:03)
[2018-08-29 11:23] LABS: ABG HCO3 22.2 MMOL/L (20-26); ABG Oxygen Saturation 97.3 % (95-100); ABG PH 7.362 (7.35-7.45); ABG PO2 110.3 MM HG (80-95); ABG TCO2 23.4 MMOL/L (23-27); Glucose Heart Surgery 244 MG/DL (74-106); Hemoglobin Heart Surgery 10.3 G/DL (14.0-18.0); Potassium Heart/CVR 3.6 MMOL/L (3.5-5.1)
[2018-08-29 11:25] LABS: Basophils % 0.1 % (0.0-0.8); Eosinophils % 0.2 % (0.00-10.9); Hematocrit 29.2 VOL% (42.0-52.0); Immature Granulocytes % 1.1 %; Immature Granulocytes Absolute 0.15 #; Lymphocytes % 7.4 % (21.2-54.2); Mean Corpuscular HGB Conc 32.5 GM/DL (32-36); Mean Corpuscular Hemoglobin 27 PG (27-34); Mean Corpuscular Volume 84.1 FL (87-102); Mean Platelet Volume 10.1 FL (9.6-12.0); Monocytes # 0.8 10*3/uL (0.11-0.8); Monocytes % 5.9 % (1.7-12.7); Neutrophils # 11.8 10*3/uL (1.4-7.4); Neutrophils % 85.3 % (38.7-73.9); Red Cell Distribution Width 13.4 % (9.3-17.3); White Blood Count 13.8 T/CUMM (4-12)
[2018-08-29] MEDS ORDERED: INSULIN REGULAR DRIP 100 ML IV SCH (11:30)
[2018-08-29 11:34] LABS: INR 1.1; PT Patient Result 11.3 SECS; Partial Thromboplastin Time 27.1 SECS (0-40)
[2018-08-29 11:35] LABS: Hemoglobin 9.5 GM/DL (14.0-18.0); Platelet Count 203 T/CUMM (130-400); Red Blood Count 3.47 MC/CUMM (3.8-5.5)
[2018-08-29 11:39] LABS: Blood Urea Nitrogen 20 MG/DL (7-18); Calcium 8.6 MG/DL (8.5-10.1); Glucose 248 MG/DL (74-106); Osmolality,Calculated 287.5 MOS/KG (273-304); Potassium 3.8 MMOL/L (3.5-5.1); Sodium 139 MMOL/L (136-145)
[2018-08-29 11:46] LABS: Lactic Acid 2.1 MMOL/L (0.4-2.0)
[2018-08-29] MEDS: SODIUM CHLORIDE 0.45% 1,000 ML IV SCH ×2 (11:46→11:47)
[2018-08-29] MEDS ORDERED: SEVOFLURANE 1 UNIT/15 MINUTE INH ONE (14:28)
[2018-08-29] MEDS ORDERED: CALCIUM CHLORIDE 1,000 MG/10 ML VIAL IV ONE (14:28)
[2018-08-29] MEDS ORDERED: METOPROLOL TARTRATE 5 MG/5 ML VIAL IV ONE (14:28)
[2018-08-29] MEDS ORDERED: VECURONIUM 10 MG VIAL IV ONE (14:28)
[2018-08-29] MEDS ORDERED: AMINOCAPROIC ACID 5,000 MG/20 ML VIAL IV ONE (14:29)
[2018-08-29] MEDS ORDERED: LACTATED RINGERS 1,000 ML IV ONE (14:29)
[2018-08-29] MEDS ORDERED: SODIUM CHLORIDE 0.9% 100 ML IV ONE (14:29)
[2018-08-29] MEDS ORDERED: SODIUM CHLORIDE 0.9% 1,000 ML IV ONE (14:29)
[2018-08-29] MEDS ORDERED: SODIUM CHLORIDE 0.9% 250 ML IV ONE (14:29)
[2018-08-29] MEDS ORDERED: HEPARIN/NACL 0.9% 2 UNITS/ML 500 ML IV ONE (14:51)
[2018-08-29] MEDS ORDERED: NITROGLYCERIN DRIP 50 MG/250 ML BOTTLE IV ONE (14:51)
[2018-08-29] MEDS ORDERED: PHENYLEPHRINE DRIP 20 MG/250 ML PREMIX IV ONE (14:51)
[2018-08-29] MEDS ORDERED: ASPIRIN CHEW 81 MG TABLET PO ONE (15:34)
[2018-08-29] MEDS: CHLORHEXIDINE 0.12% ORAL RINSE 60 ML BOTTLE SWISH/SPIT SCH (20:15)
[2018-08-29] MEDS: CEFUROXIME INJ 1,500 MG in SYRINGE 1 EACH IV SCH (20:20)
[2018-08-29] MEDS: MORPHINE 4 MG/1 ML VIAL IV PRN ×2 (20:22→22:43)
[2018-08-29] MEDS: INSULIN REGULAR 100 UNIT/ML IV PRN (23:31)
[2018-08-30] MEDS: SODIUM CHLORIDE 0.45% 1,000 ML IV SCH (00:21)
[2018-08-30] MEDS: METOCLOPRAMIDE 10 MG/2 ML VIAL IV SCH ×5 (00:27→23:42)
[2018-08-30] MEDS: INSULIN REGULAR 100 UNIT/ML IV PRN (01:17)
[2018-08-30 03:52] LABS: ABG Base Excess -2.5 MMOL/L (-2.5-2.5); ABG HCO3 22.3 MMOL/L (20-26); ABG PCO2 41.8 MM HG (35-48); ABG PH 7.348 (7.35-7.45); ABG PO2 84.2 MM HG (80-95); ABG TCO2 21.1 MMOL/L (23-27); Glucose Heart Surgery 147 MG/DL (74-106); Hematocrit Heart Surgery 30.2 PERCENT (42-52); Hemoglobin Heart Surgery 9.8 G/DL (14.0-18.0)
[2018-08-30 04:01] LABS: Hemoglobin 9.3 GM/DL (14.0-18.0); Red Blood Count 3.44 MC/CUMM (3.8-5.5); White Blood Count 18.1 T/CUMM (4-12)
[2018-08-30 04:02] LABS: Basophils % 0.1 % (0.0-0.8); Hematocrit 28.9 VOL% (42.0-52.0); Immature Granulocytes % 0.8 %; Immature Granulocytes Absolute 0.14 #; Lymphocytes # 0.9 10*3/uL (1.4-4.0); Lymphocytes % 5.1 % (21.2-54.2); Mean Corpuscular HGB Conc 32.2 GM/DL (32-36); Mean Corpuscular Hemoglobin 27 PG (27-34); Mean Platelet Volume 10.4 FL (9.6-12.0); Monocytes # 0.7 10*3/uL (0.11-0.8); Monocytes % 3.8 % (1.7-12.7); Neutrophils # 16.3 10*3/uL (1.4-7.4); Neutrophils % 90.2 % (38.7-73.9); Platelet Count 209 T/CUMM (130-400); Red Cell Distribution Width 13.7 % (9.3-17.3)
[2018-08-30 04:06] LABS: Calcium 8.4 MG/DL (8.5-10.1); Osmolality,Calculated 280.7 MOS/KG (273-304); Potassium 4.1 MMOL/L (3.5-5.1)
[2018-08-30] MEDS: MORPHINE 4 MG/1 ML VIAL IV PRN ×2 (05:57→15:57)
[2018-08-30] MEDS: CEFUROXIME INJ 1,500 MG in SYRINGE 1 EACH IV SCH ×2 (07:00→18:20)
[2018-08-30] MEDS ORDERED: INSULIN REGULAR 100 UNIT/ML SUBCUT SCH (08:00)
[2018-08-30] MEDS ORDERED: FUROSEMIDE 40 MG/4 ML VIAL IV ONE (08:23)
[2018-08-30] MEDS ORDERED: CARVEDILOL 12.5 MG TABLET PO SCH (09:00)
[2018-08-30] MEDS ORDERED: CARVEDILOL 3.125 MG TABLET PO SCH (09:00)
[2018-08-30] MEDS: FUROSEMIDE 40 MG TABLET PO SCH (09:28)
[2018-08-30] MEDS: GABAPENTIN 100 MG CAPSULE PO SCH ×2 (09:28→20:41)
[2018-08-30] MEDS: CLOPIDOGREL 75 MG TABLET PO SCH (09:28)
[2018-08-30] MEDS: ASPIRIN EC 325 MG TABLET PO SCH (09:29)
[2018-08-30] MEDS: PANTOPRAZOLE 40 MG VIAL IV SCH (09:41)
[2018-08-30] MEDS: CHLORHEXIDINE 0.12% ORAL RINSE 60 ML BOTTLE SWISH/SPIT SCH ×2 (09:42→20:41)
[2018-08-30] MEDS: MORPHINE 10 MG/1 ML VIAL IV PRN ×3 (09:51→14:02)
[2018-08-30] MEDS: INSULIN LISPRO 100 UNIT/ML SUBCUT SCH ×3 (12:13→20:20)
[2018-08-30] MEDS: INSULIN GLARGINE 100 UNIT/ML SUBCUT SCH ×2 (12:13→20:20)
[2018-08-30] MEDS ORDERED: INSULIN REGULAR 100 UNIT/ML IV ONE (20:21)
[2018-08-30] MEDS: ATORVASTATIN 40 MG TABLET PO SCH (20:41)
[2018-08-30] MEDS: CARVEDILOL 6.25 MG TABLET PO SCH (20:41)
[2018-08-31 05:15] LABS: Basophils % 0.1 % (0.0-0.8); Hematocrit 28.4 VOL% (42.0-52.0); Hemoglobin 8.9 GM/DL (14.0-18.0); Immature Granulocytes % 0.9 %; Immature Granulocytes Absolute 0.16 #; Lymphocytes # 0.8 10*3/uL (1.4-4.0); Lymphocytes % 4.7 % (21.2-54.2); Mean Corpuscular HGB Conc 31.3 GM/DL (32-36); Mean Corpuscular Hemoglobin 27 PG (27-34); Mean Corpuscular Volume 86.1 FL (87-102); Mean Platelet Volume 10.6 FL (9.6-12.0); Monocytes # 1.4 10*3/uL (0.11-0.8); Monocytes % 8.1 % (1.7-12.7); Neutrophils % 86.2 % (38.7-73.9); Platelet Count 218 T/CUMM (130-400); Red Cell Distribution Width 13.8 % (9.3-17.3); White Blood Count 17.4 T/CUMM (4-12)
[2018-08-31 05:48] LABS: Osmolality,Calculated 291.2 MOS/KG (273-304); Potassium 4.5 MMOL/L (3.5-5.1)
[2018-08-31 06:04] LABS: Band Neutrophils 6 % (0-10); Hypochromasia 1+; Lymphocytes 4 % (20-55); Microcytosis 1+; Myelocytes 1 %; Segmented Neutrophils 86 % (50-85); Total Cells Counted 100
[2018-08-31] MEDS: METOCLOPRAMIDE 10 MG/2 ML VIAL IV SCH ×3 (06:19→18:50)
[2018-08-31] MEDS: LEVOTHYROXINE 150 MCG TABLET PO SCH (06:19)
[2018-08-31] MEDS: INSULIN LISPRO 100 UNIT/ML SUBCUT SCH ×5 (07:14→22:04)
[2018-08-31] MEDS: ASPIRIN CHEW 81 MG TABLET PO SCH (07:15)
[2018-08-31] MEDS: CARVEDILOL 12.5 MG TABLET PO SCH (07:15)
[2018-08-31] MEDS: CHLORHEXIDINE 4% SOLN 118 ML BOTTLE TOP SCH (07:15)
[2018-08-31] MEDS: ISOSORBIDE MONONITRATE 30 MG TABLET PO SCH (07:15)
[2018-08-31] MEDS: DORZOLAMIDE/TIMOLOL OPH SOLN 10 ML BOTTLE LEFT EYE SCH (07:15)
[2018-08-31] MEDS: OMEGA 3 ACID ETHYL ESTERS 1 GM CAPSULE PO SCH (07:16)
[2018-08-31] MEDS: ESCITALOPRAM 10 MG TABLET PO SCH (07:16)
[2018-08-31] MEDS: GABAPENTIN 100 MG CAPSULE PO SCH ×3 (07:16→22:02)
[2018-08-31] MEDS: SODIUM CHLORIDE 0.9% 1,000 ML IV SCH (07:16)
[2018-08-31] MEDS: FUROSEMIDE 40 MG TABLET PO SCH ×2 (07:16→09:14)
[2018-08-31] MEDS: RANOLAZINE 500 MG TABLET PO SCH (07:17)
[2018-08-31] MEDS: PANTOPRAZOLE 40 MG TABLET PO SCH (07:17)
[2018-08-31] MEDS: CHOLECALCIFEROL 1,000 UNIT TABLET PO SCH (07:17)
[2018-08-31] MEDS: CHLORHEXIDINE 0.12% ORAL RINSE 60 ML BOTTLE SWISH/SPIT SCH ×3 (07:17→22:09)
[2018-08-31] MEDS: SODIUM CHLORIDE 0.45% 1,000 ML IV SCH (07:18)
[2018-08-31] MEDS: CETIRIZINE 10 MG TABLET PO SCH (07:18)
[2018-08-31] MEDS ORDERED: INSULIN GLARGINE 100 UNIT/ML SUBCUT SCH ×2 (07:41→21:00)
[2018-08-31] MEDS: CLOPIDOGREL 75 MG TABLET PO SCH (09:14)
[2018-08-31] MEDS: ASPIRIN EC 325 MG TABLET PO SCH (09:14)
[2018-08-31] MEDS: CARVEDILOL 6.25 MG TABLET PO SCH ×2 (09:14→22:03)
[2018-08-31] MEDS ORDERED: GLUCAGON 1 MG VIAL IM PRN (10:25)
[2018-08-31] MEDS ORDERED: BISACODYL 5 MG TABLET PO PRN (10:25)
[2018-08-31] MEDS ORDERED: DEXTROSE 50% 25 GM/50 ML VIAL IV PRN (10:25)
[2018-08-31] MEDS: PANTOPRAZOLE 40 MG VIAL IV SCH (11:28)
[2018-08-31] MEDS: DOCUSATE SODIUM 100 MG CAPSULE PO SCH ×2 (12:28→22:03)
[2018-08-31] MEDS: ATORVASTATIN 40 MG TABLET PO SCH (22:03)
[2018-09-01] MEDS: INSULIN LISPRO 100 UNIT/ML SUBCUT SCH ×6 (01:34→20:37)
[2018-09-01] MEDS: METOCLOPRAMIDE 10 MG/2 ML VIAL IV SCH ×4 (01:36→18:35)
[2018-09-01 05:49] LABS: Basophils % 0.1 % (0.0-0.8); Eosinophils # 0.1 10*3/uL (0.0-0.87); Eosinophils % 0.6 % (0.00-10.9); Hematocrit 29.3 VOL% (42.0-52.0); Hemoglobin 9.3 GM/DL (14.0-18.0); Immature Granulocytes % 0.9 %; Immature Granulocytes Absolute 0.13 #; Lymphocytes # 1.5 10*3/uL (1.4-4.0); Lymphocytes % 10.8 % (21.2-54.2); Mean Corpuscular HGB Conc 31.7 GM/DL (32-36); Mean Corpuscular Hemoglobin 27 PG (27-34); Mean Corpuscular Volume 84.4 FL (87-102); Mean Platelet Volume 10.4 FL (9.6-12.0); Monocytes # 1.2 10*3/uL (0.11-0.8); Monocytes % 8.7 % (1.7-12.7); Neutrophils # 11.1 10*3/uL (1.4-7.4); Neutrophils % 78.9 % (38.7-73.9); Platelet Count 221 T/CUMM (130-400); Red Blood Count 3.47 MC/CUMM (3.8-5.5); Red Cell Distribution Width 13.9 % (9.3-17.3)
[2018-09-01 05:52] LABS: Calcium 8.5 MG/DL (8.5-10.1); Osmolality,Calculated 283.5 MOS/KG (273-304); Potassium 4.4 MMOL/L (3.5-5.1)
[2018-09-01] MEDS: LEVOTHYROXINE 150 MCG TABLET PO SCH (06:12)
[2018-09-01] MEDS: PANTOPRAZOLE 40 MG VIAL IV SCH (08:33)
[2018-09-01] MEDS: DOCUSATE SODIUM 100 MG CAPSULE PO SCH ×2 (09:11→21:57)
[2018-09-01] MEDS: CLOPIDOGREL 75 MG TABLET PO SCH (09:11)
[2018-09-01] MEDS: ASPIRIN EC 325 MG TABLET PO SCH (09:12)
[2018-09-01] MEDS: GABAPENTIN 100 MG CAPSULE PO SCH ×2 (09:12→21:04)
[2018-09-01] MEDS: FUROSEMIDE 40 MG TABLET PO SCH (09:12)
[2018-09-01] MEDS ORDERED: FUROSEMIDE 40 MG/4 ML VIAL IV ONE (09:14)
[2018-09-01] MEDS: CARVEDILOL 6.25 MG TABLET PO SCH ×2 (09:16→21:05)
[2018-09-01] MEDS: CHLORHEXIDINE 0.12% ORAL RINSE 60 ML BOTTLE SWISH/SPIT SCH ×2 (10:22→21:57)
[2018-09-01] MEDS: ATORVASTATIN 40 MG TABLET PO SCH (21:03)
[2018-09-02] MEDS: METOCLOPRAMIDE 10 MG/2 ML VIAL IV SCH ×2 (01:53→05:31)
[2018-09-02 04:00] LABS: Osmolality,Calculated 282.4 MOS/KG (273-304); Potassium 3.5 MMOL/L (3.5-5.1)
[2018-09-02] MEDS: LEVOTHYROXINE 150 MCG TABLET PO SCH (05:31)
[2018-09-02] MEDS ORDERED: CARVEDILOL 12.5 MG TABLET PO SCH (07:07)
[2018-09-02 08:53] VITALS: BP 132/83
[2018-09-02] MEDS ORDERED: LISINOPRIL 2.5 MG TABLET PO SCH (09:00)
[2018-09-02] MEDS: ASPIRIN EC 325 MG TABLET PO SCH (09:04)
[2018-09-02] MEDS: DOCUSATE SODIUM 100 MG CAPSULE PO SCH (09:04)
[2018-09-02] MEDS: GABAPENTIN 100 MG CAPSULE PO SCH (09:05)
[2018-09-02] MEDS: FUROSEMIDE 40 MG TABLET PO SCH (09:05)
[2018-09-02] MEDS: CLOPIDOGREL 75 MG TABLET PO SCH (09:05)
[2018-09-02] MEDS: CHLORHEXIDINE 0.12% ORAL RINSE 60 ML BOTTLE SWISH/SPIT SCH (09:05)
[2018-09-02] MEDS: PANTOPRAZOLE 40 MG VIAL IV SCH (09:05)
[2018-09-02] MEDS ORDERED: ROSUVASTATIN 20 MG TABLET PO SCH (21:00)
== END 2018-09-02 12:25 | disposition home health service (06) | DRG 234 ==
LOC: EDUNIT# → EDBD → N.EDINP 13:46 → N.ED 13:46 → N.2W 16:50 → N.TELEN 17:23 → N.CVR 08-29 08:08 → N.TELES 08-30 16:06
PROVIDERS: ADMIT Internal Medicine Cardiovascular Disease; ATTEND Internal Medicine Cardiovascular Disease

== ENCOUNTER 2019-07-02 08:28 | Inpatient (IN) ==
[2019-07-02] MEDS ORDERED: NITROGLYCERIN SL 0.4 MG TABLET SL PRN (09:02)
[2019-07-02] MEDS ORDERED: NITROGLYCERIN 2% OINT 1 INCH/GM PACK TOP STA (09:02)
[2019-07-02] MEDS ORDERED: NITROGLYCERIN 2% OINT 1 INCH/GM PACK TOP ONE (09:03)
[2019-07-02 09:27] LABS: Basophils # 0.1 10*3/uL (0.0-0.2); Basophils % 0.7 % (0.0-0.8); Eosinophils # 0.4 10*3/uL (0.0-0.87); Eosinophils % 4.6 % (0.00-10.9); Hematocrit 41.9 VOL% (42.0-52.0); Hemoglobin 13.6 GM/DL (14.0-18.0); Immature Granulocytes % 0.6 %; Immature Granulocytes Absolute 0.06 #; Lymphocytes # 2.4 10*3/uL (1.4-4.0); Mean Corpuscular HGB Conc 32.5 GM/DL (32-36); Mean Corpuscular Volume 83.3 FL (87-102); Mean Platelet Volume 9.7 FL (9.6-12.0); Monocytes % 9.9 % (1.7-12.7); Neutrophils % 59.2 % (38.7-73.9); Platelet Count 283 T/CUMM (130-400); Red Blood Count 5.03 MC/CUMM (3.8-5.5); Red Cell Distribution Width 13.3 % (9.3-17.3); White Blood Count 9.6 T/CUMM (4-12)
[2019-07-02 09:39] LABS: Calcium 9.1 MG/DL (8.5-10.1); Osmolality,Calculated 281.5 MOS/KG (273-304)
[2019-07-02] MEDS ORDERED: MAGNESIUM SULF RIDER 2 GM in PREMIX 1 EACH IV PRN (10:28)
[2019-07-02] MEDS ORDERED: ONDANSETRON 4 MG/2 ML VIAL IV PRN (10:28)
[2019-07-02] MEDS ORDERED: ZALEPLON 5 MG CAPSULE PO PRN (10:28)
[2019-07-02] MEDS ORDERED: MORPHINE 4 MG/1 ML VIAL IV PRN (10:28)
[2019-07-02] MEDS ORDERED: DEXTROSE 10% 250 ML BAG IV PRN (10:28)
[2019-07-02] MEDS ORDERED: MAGNESIUM SULF RIDER 4 GM in PREMIX 1 EACH IV PRN (10:28)
[2019-07-02] MEDS ORDERED: POTASSIUM CHLORIDE 20 MEQ TABLET PO PRN (10:28)
[2019-07-02] MEDS ORDERED: GLUCAGON 1 MG VIAL IM PRN (10:28)
[2019-07-02] MEDS ORDERED: SODIUM CHLORIDE 0.45% 1,000 ML IV SCH (10:30)
[2019-07-02] MEDS: ENOXAPARIN 100 MG/ML SYRINGE SUBCUT SCH ×2 (11:37→22:56)
[2019-07-02] MEDS: INSULIN LISPRO 100 UNIT/ML SUBCUT SCH ×3 (12:12→20:35)
[2019-07-02] MEDS: INSULIN ASPART U SUBCUT SCH (12:53)
[2019-07-02] MEDS: CARVEDILOL 6.25 MG TABLET PO SCH (20:33)
[2019-07-02] MEDS: GABAPENTIN 100 MG CAPSULE PO SCH (20:34)
[2019-07-02] MEDS: DORZOLAMIDE/TIMOLOL OPH SOLN 10 ML BOTTLE LEFT EYE SCH (20:34)
[2019-07-02] MEDS: OMEGA 3 ACID ETHYL ESTERS 1 GM CAPSULE PO SCH (20:34)
[2019-07-02] MEDS ORDERED: BIMATOPROST 0.01% OPH SOLN 2.5 ML BOTTLE LEFT EYE SCH (21:00)
[2019-07-02] MEDS ORDERED: ROSUVASTATIN 20 MG TABLET PO SCH (21:00)
[2019-07-03 05:07] LABS: Risk Ratio 4.28; VLDL CHOLESTEROL 68.4 MG/DL
[2019-07-03] MEDS ORDERED: LEVOTHYROXINE 150 MCG TABLET PO SCH (06:30)
[2019-07-03] MEDS ORDERED: REGADENOSON 0.4 MG/5 ML SYRINGE IV ONE (08:09)
[2019-07-03] MEDS ORDERED: FUROSEMIDE 40 MG TABLET PO SCH (09:00)
[2019-07-03] MEDS ORDERED: FENOFIBRATE 160 MG TABLET PO SCH (09:00)
[2019-07-03] MEDS ORDERED: ESCITALOPRAM 10 MG TABLET PO SCH (09:00)
[2019-07-03] MEDS ORDERED: CHOLECALCIFEROL 1,000 UNIT TABLET PO SCH (09:00)
[2019-07-03] MEDS ORDERED: CETIRIZINE 10 MG TABLET PO SCH (09:00)
[2019-07-03] MEDS ORDERED: Liraglutide [Victoza 3-Pak] 1.2 MG SUBCUT SCH (09:00)
[2019-07-03] MEDS ORDERED: PANTOPRAZOLE 40 MG TABLET PO SCH (09:00)
[2019-07-03] MEDS ORDERED: CLOPIDOGREL 75 MG TABLET PO SCH (09:00)
[2019-07-03] MEDS: INSULIN LISPRO 100 UNIT/ML SUBCUT SCH ×2 (09:08→11:12)
[2019-07-03] MEDS: OMEGA 3 ACID ETHYL ESTERS 1 GM CAPSULE PO SCH (09:19)
[2019-07-03] MEDS: GABAPENTIN 100 MG CAPSULE PO SCH (09:20)
[2019-07-03] MEDS: DORZOLAMIDE/TIMOLOL OPH SOLN 10 ML BOTTLE LEFT EYE SCH (09:20)
[2019-07-03] MEDS: CARVEDILOL 6.25 MG TABLET PO SCH (09:20)
[2019-07-03] MEDS: ENOXAPARIN 100 MG/ML SYRINGE SUBCUT SCH (11:03)
[2019-07-03] MEDS: INSULIN ASPART U SUBCUT SCH (11:33)
[2019-07-03 12:45] VITALS: BP 133/74
== END 2019-07-03 14:10 | disposition home or self-care (01) | DRG 313 ==
LOC: N.ED 08:28 → N.EDINP 10:28 → INTOOBSV 10:28 → N.EDINP 11:48 → N.TELES 12:22
PROVIDERS: ADMIT Internal Medicine Cardiovascular Disease; ATTEND Internal Medicine Cardiovascular Disease